=== PATIENT | female | born 2000 | race Caucasian/White ===

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

== ENCOUNTER → 2021-01-15 | Outpatient (CLI) | payer BC | LOC: RAD 07:47 | DX: N83.202 Unspecified ovarian cyst, left side (principal) ==